=== PATIENT | female | born 2005 | race Hispanic/Latino ===

== ENCOUNTER 2025-01-11 22:07 | Emergency (ER) | payer SELFPAY ==
[~2025-01-11] VITALS: Ht 149.9 cm; Wt 68.9 kg
[2025-01-11 22:28] LABS: APPEARANCE,URINE CLEAR (CLEAR); GLUCOSE, URINE (UA) NEGATIVE (NEGATIVE); LEUKOCYTE ESTERASE ,URINE NEGATIVE Leu/uL (NEGATIVE); NITRATE,URINE NEGATIVE (NEGATIVE); OCCULT BLOOD,URINE NEGATIVE (NEGATIVE)
[2025-01-11 22:43] LABS: ADD UA MICROSCOPIC NO
--- NOTE | 2025-01-11 23:10 | ERN ---
General Chief Complaint: Abdominal Pain Stated Complaint: C/O LOWER ABD CRAMPS, HEADACHE Time Seen by MD: 22:09 Time Seen by Midlevel: 22:09 Source: patient History of Present Illness Initial Comments 19-year-old female who presents to the emergency department due to lower abdominal cramping and headaches. Patient reports the symptoms have been ongoing for the past 2-3 weeks off and on. Denies any nausea, vomiting, diarrhea, fever, dysuria or further associated symptoms. LMP November 2024. Denies significant past medical history. Allergies: Coded Allergies: No Known Allergies (Unverified Allergy, Unknown, 01/11/25) Past Medical History Past Medical History: No Pertinent History Past Surgical History: None Female( History) LMP: Nov 28, 2024 ROS Dictation Constitutional: Negative for fever,chills, and weight loss Eyes: Negative for injury, pain,redness, and discharge ENT: Negative for injury,pain or swelling Cardiovascular: Negative for chest pain, palpitations, and edema Respiratory: Negative for shortness of breath, cough, and wheezing, Abdomen/GI: Positive for lower abdominal cramping Negative for nausea, vomiting, diarrhea, and constipation Back: Negative for injury and pain : Negative for painful urination, bleeding or discharge MS/Extremity: Negative for injury and deformity Skin: Negative for rash, and discoloration Neuro: Positive for headache Negative for weakness, numbness, tingling, and seizure Psych: Negative for suicide ideation, homicidal ideation, and hallucinations Physical Exam Physical Exam Dictation General: awake, alert, no acute distress Head/Face: Normocephalic, atraumatic Eyes: PERRL, EOMI, normal conjunctiva ENT: oral cavity clear, oral mucosa moist Neck: Supple, normal range of motion Cardiovascular: RRR, normal S1/S2 Respiratory: CTAB, no respiratory distress, no rales or wheezes Abdomen: Soft, non-tender, non-distended, no guarding or rebound. Skin: Warm, dry, normal turgor, no rash MS/Extremity: Pulses equal, no cyanosis, neurovascular intact, FROM Neuro: COAx4, GCS 15, strength 5/5, CN 2-12 intact, normal cerebellar exam, no rmal gait Psych: Normal behavior, mood, and affect normal Results Laboratory and Microbiology Lab and Micro Result Laboratory Tests Test 01/11/25 22:15 Urine Color LIGHT-YELLOW (YELLOW) Urine Appearance CLEAR (CLEAR) Urine pH 5.5 (5.0-8.0) Urine Specific [place] 1.026 (1.001-1.031) Urine Protein NEGATIVE mg/dL (NEGATIVE) Urine Glucose (UA) NEGATIVE mg/dL (NEGATIVE) Urine Ketones NEGATIVE mg/dL (NEGATIVE) Urine Occult Blood NEGATIVE (NEGATIVE) Urine Nitrate NEGATIVE (NEGATIVE) Urine Bilirubin NEGATIVE mg/dL (NEGATIVE) Urine Urobilinogen 0.2 mg/dL (0.2-1.0) Urine Leukocyte Esterase NEGATIVE Suzanne/uL Urine HCG, Qualitative POSITIVE (NEGATIVE) H Labs Reviewed?: Yes MDM MDM: Differential diagnosis: , UTI Rationale: 19-year-old female who presents to the emergency department due to lower abdominal cramping and headaches. Patient reports the symptoms have been ongoing for the past 2-3 weeks off and on. Denies any nausea, vomiting, diarrhea, fever, dysuria or further associated symptoms. LMP November 2024. Denies significant past medical history. Per physical examination patient is in no acute distress, abdomen is soft nonten isidro, neurologically intact. Urine obtained negative for urinary tract infection. Urine positive. Patient was educated on findings, and diagnosis. Advised to follow up with PCP/OBGYN. Return to the emergency department for any worsening symptoms. Patient verbalized understanding. Patient stable for discharge. There are no social concerns with this patient. I independently interpreted the test that were performed, results were reviewed by me and considered findings on radiology if ordered. Medical management and examination interpretation discussions were had by me with other qualified healthcare professionals as indicated for the patient's care. ED Course Orders Procedure Category Date Status Time Urinalysis Profile LAB 01/11/25 Complete 22:11 ,Urine Test LAB 01/11/25 Complete 22:11 Vital Signs Date Time Temp Pulse Resp B/P (MAP) Pulse Ox O2 Delivery O2 Flow Rate FiO2 01/11/25 23:12 98.1 62 18 129/62 99 Room Air* 0 21 01/11/25 22:09 98.2 66 20 126/57 100 Room Air DX & DISP Disposition: Discharge Departure Impression: Primary Impression: Additional Impression: Positive test Condition: Stable Additional Instructions: Discharge home. Rest. Follow up with primary care in 24 hours. Return to the ER for any acute changes or worsening symptoms. If any medications were prescribed take as directed. Okay to continue home medications unless otherwise discussed during your visit in the emergency room today. Patient was also advised to follow-up with primary care physician in 1 to 2 days for continued monitoring. Referrals: SELF,REFERRAL (PCP) LUIS BROOKE MD I performed the substantive portion of the visit. I have reviewed and personally made and approve the management plan that is documented in the notes by myself or the TRINO. I acknowledge full responsibility for the patient's management plan. CHARIYT WALKER Jan 11, 2025 23:10
[2025-01-11 23:12] VITALS: BP 129/62; PULSE 62; RESP 18; TEMP 98.1; O2SAT 99
== END 2025-01-11 23:47 | disposition home or self-care (01) ==
LOC: EDH 22:07
DX: O26.891 Other specified pregnancy related conditions, first trimester (principal); R10.30 Lower abdominal pain, unspecified; R51.9 Headache, unspecified; Z3A.01 Less than 8 weeks gestation of pregnancy
CPT/HCPCS: 81003; 81025; 99283